=== PATIENT | male | born 1995 | race Caucasian/White ===

== ENCOUNTER → 2021-03-22 | Outpatient (CLI) | payer BC, OTHER ==
[~2021-03-22] MED LIST: CETI5 PO; DOXY100 PO
== END | disposition home or self-care (01) ==
LOC: LAB 14:00 → LAB SHORT 14:00
DX: U07.1 COVID-19 (principal)
CPT/HCPCS: U0003

== ENCOUNTER → 2021-06-18 | Outpatient (CLI) | payer BC, OTHER ==
[2021-06-18 10:06] LABS: Protein, Urine Quantitative 6.6 mg/dL (0.0-11.9)
[2021-06-18 10:11] LABS: Microalbumin, Urine Quant. <5.000 mg/L (0.000-20.000)
[2021-06-18 11:36] LABS: Stool Occult Bld Immuno 1 Negative (NEGATIVE)
== END | disposition home or self-care (01) ==
LOC: LAB SHORT 06:30
PROVIDERS: Internal Medicine Nephrology
DX: N18.2 Chronic kidney disease, stage 2 (mild) (principal); D63.1 Anemia in chronic kidney disease; N25.81 Secondary hyperparathyroidism of renal origin; E55.9 Vitamin D deficiency, unspecified; E78.00 Pure hypercholesterolemia, unspecified; R76.9 Abnormal immunological finding in serum, unspecified; R94.5 Abnormal results of liver function studies; R94.6 Abnormal results of thyroid function studies
CPT/HCPCS: 81050; 82043; 82274; 82570; 84156

== ENCOUNTER → 2023-05-29 | Outpatient (CLI) | payer SELFPAY | LOC: LAB 15:56 → LAB SHORT 15:56 | DX: J02.9 Acute pharyngitis, unspecified (principal) | CPT/HCPCS: 87077; 87081; 87185 ==